=== PATIENT | female | born 1955 | race Caucasian/White ===

== ENCOUNTER → 2017-07-29 | Outpatient (CLI) | payer OTHER ==
[~2017-07-29] MED LIST: CEPH500C PO; EMBREL; MTX2.5T
--- NOTE | 2017-07-29 18:01 | Diagnostic Imaging Report ---
INDICATION: Right upper extremity pain. Venous Doppler right arm. FINDINGS: Duplex ultrasound of the venous system of the right upper extremity was done with a grayscale, spectral waveform and color Doppler flow analysis. The veins are compressible and have normal spontaneous and augmented flow. IMPRESSION: Negative venous Doppler of the right upper extremity. Dictated by: Dictated on workstation # [id number]
== END ==
LOC: RAD 16:39
PROVIDERS: ATTEND Family Medicine
DX: M79.621 Pain in right upper arm (principal); R60.0 Localized edema

== ENCOUNTER → 2018-09-01 | Outpatient (CLI) | payer OTHER ==
--- NOTE | 2018-09-01 11:48 | Diagnostic Imaging Report ---
INDICATION: Bilateral shoulder pain for several years. 3 views of the right shoulder demonstrates moderate osteophytes in inferior glenoid humeral joint. No fracture or dislocation is present. 3 views of the left shoulder demonstrates some osteophytes in the inferior glenoid humeral joint which are smaller than was seen on the right. IMPRESSION: There are degenerative changes to both shoulders right greater than left. Dictated by: Dictated on workstation # [id number]
== END ==
LOC: RAD FS 10:57
PROVIDERS: ATTEND Nurse Practitioner
DX: M19.011 Primary osteoarthritis, right shoulder (principal); M19.012 Primary osteoarthritis, left shoulder; M75.102 Unspecified rotator cuff tear or rupture of left shoulder, not specified as traumatic; M75.101 Unspecified rotator cuff tear or rupture of right shoulder, not specified as traumatic

== ENCOUNTER → 2020-06-06 | Outpatient (CLI) | payer OTHER ==
--- NOTE | 2020-06-08 09:10 | Diagnostic Imaging Report ---
INDICATION: Routine screening. Comparison is made with prior mammogram 02/05/2011. 2-D and 3-D bilateral screening mammography was performed with CAD. Scattered fibroglandular densities are identified bilaterally. The parenchymal is stable. No dominant mass or malignant appearing microcalcifications are seen. Axillae are unremarkable. IMPRESSION: BI-RADS Category 1 No mammographic features suspicious for malignancy are identified. ACR BI-RADS Category 1: Negative. Result letter will be mailed to the patient. Note: At least 10% of breast cancer is not imaged by mammography. Dictated on workstation # [id number]
== END ==
LOC: RAD 13:15
PROVIDERS: ATTEND Family Medicine
DX: Z12.31 Encounter for screening mammogram for malignant neoplasm of breast (principal)
CPT/HCPCS: 77063; 77067

== ENCOUNTER → 2020-09-28 | Outpatient (CLI) | payer OTHER ==
--- NOTE | 2020-09-28 16:42 | Diagnostic Imaging Report ---
INDICATION: Bilateral knee pain AP, oblique, and lateral views of the left knee are obtained. No fracture or acute bony abnormality seen. There is marked patellofemoral joint space narrowing and spurring. There is prominent medial joint space narrowing and osteophyte formation. There is mild lateral joint space narrowing and osteophyte formation. There is no acute fracture or joint effusion IMPRESSION: Marked degenerative findings of the left knee with no acute appearing abnormality. Dictated by: Dictated on workstation # [id number]
--- NOTE | 2020-09-28 16:45 | Diagnostic Imaging Report ---
INDICATION: Right knee pain AP, oblique, lateral views of the right knee are obtained. No acute fracture or acute bony abnormality seen. There is prominent medial joint space narrowing with moderate lateral joint space narrowing with osteophyte formation. There is patellofemoral spurring. There is questionable loose bodies in the superior joint space. IMPRESSION: Osteoarthritic changes of the right knee with no acute fracture. Questionable loose body in the superior joint space. Dictated by: Dictated on workstation # [id number]
== END ==
LOC: RAD FS 14:54
PROVIDERS: ATTEND Nurse Practitioner
DX: M17.0 Bilateral primary osteoarthritis of knee (principal)
CPT/HCPCS: 73562

== ENCOUNTER → 2021-01-10 | Outpatient (CLI) | payer OTHER ==
--- NOTE | 2021-01-10 15:38 | Diagnostic Imaging Report ---
EXAMINATION: CHEST (PA AND LATERAL). CLINICAL INDICATION: 65-year-old female, status post Covid 19 infection. Cough. COMPARISON: December 04, 2006. FINDINGS: The heart size and mediastinal contours are unchanged. There is no identified pneumothorax. There is no pleural effusion. There are multifocal bilateral predominantly linear opacities which are mildly increased since November 2006. IMPRESSION: Bilateral predominantly linear opacities with a mid and lower lung zone predominance which are mildly increased since November 2006. This may reflect chronic lung changes although an interval acute process is difficult to exclude without more recent comparison imaging. Dictated by: Dictated on workstation # [id number]
== END ==
LOC: RAD 14:22
PROVIDERS: ATTEND Family Medicine
DX: R05 Cough (principal); Z86.16 Personal history of COVID-19
CPT/HCPCS: 71046